=== PATIENT | female | born 1990 | race Caucasian/White ===

== ENCOUNTER 2018-06-06 06:40 | Day surgery (SDC) | payer BC ==
[~2018-06-06 06:40] MED LIST: Lactated Ringers 1,000 ML IV SCH; ceFAZolin 2 GM in Premix Bag 1 BAG IV ONE
[2018-06-06] MEDS ORDERED: Lidocaine 2% 5 ML SDV ONE (06:52)
[2018-06-06] MEDS ORDERED: Rocuronium 10 MG/ML 10 ML Syringe ONE (06:52)
[2018-06-06] MEDS ORDERED: Ondansetron 4 MG/2 ML SDV ONE (06:52)
[2018-06-06] MEDS ORDERED: Propofol 200 MG/20 ML SDV ONE (06:52)
[2018-06-06] MEDS ORDERED: fentaNYL 250 MCG/5 ML SDV ONE (06:52)
[2018-06-06] MEDS ORDERED: Midazolam 1 MG/ML 2 ML SDV ONE (06:52)
[2018-06-06] MEDS ORDERED: ceFAZolin/Dextrose,Iso-Osmotic 2 GM/50 ML Duplex Bag IV ONE (06:54)
[2018-06-06] MEDS ORDERED: Scopolamine 1.5 MG Transdermal Patch TRDERM PRN (07:03)
[2018-06-06] MEDS ORDERED: fentaNYL 100 MCG/2 ML SDV IVPUSH PRN (07:03)
[2018-06-06] MEDS ORDERED: Bupivacaine 25%/EPINEPHrine/PF 30 ML ONE (07:11)
[2018-06-06] MEDS ORDERED: Octyl 2-Cyanoacrylate 1 Tube ONE (07:11)
--- NOTE | 2018-06-06 07:18 | PCM.PREANE ---
Preanesthetic Assessment - Procedure Proposed Procedure: lap marielle - Anesthesia/Transfusion/Family Hx Anesthesia History: Prior Anesthesia Without Reaction Transfusion History: No Prior Transfusion(s) - Review of Systems Other: Reports: None - Physical Assessment NPO Status Date: 06/05/18 NPO Status Time: 21:00 O2 Sat by Pulse Oximetry: 98 Respiratory Rate: 16 Vital Signs: Last Vital Signs Temp 36.1 C 06/06/18 07:00 Pulse 92 06/06/18 07:00 Resp 16 06/06/18 07:00 BP 126/79 06/06/18 07:00 Pulse Ox 98 06/06/18 07:00 Height: 5 ft 6 in Weight: 112.037 kg ASA Class: 2 Mental Status: Alert & Oriented x3 Airway Class: Mallampati = 1 Dentition: Reports: Normal Dentition Thyro-Mental Finger Breadths: 3 Mouth Opening Finger Breadths: 3 ROM/Head Extension: Full - Allergies Allergies/Adverse Reactions: Allergies Allergy/AdvReac Type Severity Reaction Status Date / Time acetaminophen [From Vicodin] Allergy Itching Verified 06/03/18 09:12 hydrocodone [From Vicodin] Allergy Itching Verified 06/03/18 09:12 Sulfa (Sulfonamide Allergy Itching Verified 06/03/18 09:12 Antibiotics) - Blood Blood Available: No - Acknowledgements Anesthesia Type Planned: General Anesthesia Pt an Appropriate Candidate for the Planned Anesthesia: Yes Alternatives and Risks of Anesthesia Discussed w Pt/Guardian: Yes Pt/Guardian Understands and Agrees with Anesthesia Plan: Yes PreAnesthesia Questionnaire HEENT History: Reports: None Genitourinary History: Reports: None [employer]IL[employer]MA[employer] 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 Musculoskeletal History: Reports: Fracture Other Musculoskeletal History: hx fx leg Neurological History: Reports: Concussion Psychiatric History: Reports: Anxiety Endocrine/Metabolic History: Reports: Obesity/BMI 30+ Dermatologic History: Reports: Eczema - Past Surgical History Head Surgeries/Procedures: Reports: None HEENT Surgical History: Reports: Oral Surgery Female Surgical History: Reports: Other (See Below) Other Female Surgeries/Procedures: laparoscopy for ectopic - SUBSTANCE USE Smoking Status *Q: Never Smoker Recreational Drug Use History: No - HOME MEDS Home Medications: Home Meds Norgestimate-Ethinyl Estradiol [Leake-Linyah 28 Tablet] 1 tab PO DAILY 06/03/18 [ History] - CURRENT (IN HOUSE) MEDS Current Meds: Current Medications Fentanyl (Sublimaze) 50 mcg IVPUSH SEECOMMENT PRN PRN Reason: Pain (moderate 4-6) Lactated Ringer's (Ringers, Lactated) 1,000 mls @ 125 mls/hr IV ASDIRECTED VANESA Last Admin: 06/06/18 07:05 Dose: 125 mls/hr Scopolamine (Transderm-Scop) 1.5 mg TRDERM Q72H PRN PRN Reason: Nausea Discontinued Medications Cefazolin Sodium/Dextrose (Ancef) Confirm Administered Dose 2 gm IV .STK-MED ONE Stop: 06/06/18 06:55 Fentanyl (Sublimaze) Confirm Administered Dose 250 mcg .ROUTE .STK-MED ONE Stop: 06/06/18 06:53 Cefazolin Sodium/Dextrose 2 gm (/ Premix) 50 mls @ 100 mls/hr IV ONETIME ONE Stop: 06/06/18 05:29 Bupivacaine HCl/Epinephrine Bitart (Sensorc Mpf 0.25%-Epi 1:[id number]) Confirm Administered Dose 30 mls @ as directed .ROUTE .STK-MED ONE Stop: 06/06/18 07:12 Lidocaine (Xylocaine-Mpf 2%) Confirm Administered Dose 5 ml .ROUTE .STK-MED ONE Stop: 06/06/18 06:53 Midazolam HCl (Versed 1 Mg/Ml) Confirm Administered Dose 2 mg .ROUTE .STK-MED ONE Stop: 06/06/18 06:53 Octyl Cyanoacrylate (Dermabond Advance) Confirm Administered Dose 1 applic .ROUTE .STK-MED ONE Stop: 06/06/18 07:12 Ondansetron HCl (Zofran) Confirm Administered Dose 4 mg .ROUTE .STK-MED ONE Stop: 06/06/18 06:53 Propofol (Diprivan 20 Ml) Confirm Administered Dose 200 mg .ROUTE .STK-MED ONE Stop: 06/06/18 06:53 Rocuronium Eloy (Zemuron) Confirm Administered Dose 100 mg .ROUTE .STK-MED ONE Stop: 06/06/18 06:53
[2018-06-06] MEDS ORDERED: HYDROmorphone 2 MG/ML SDV ONE (09:01)
[2018-06-06] MEDS ORDERED: Glycopyrrolate 0.2 MG/ML SDV ONE (09:10)
[2018-06-06] MEDS ORDERED: Neostigmine Methylsulfate 1 MG/ML 5 ML Syringe ONE (09:10)
[2018-06-06] MEDS ORDERED: Acetaminophen/oxyCODONE 325-5 MG Tab PO PRN (10:08)
--- NOTE | 2018-06-06 10:23 | PCM.POSTAN ---
POST ANESTHESIA ASSESSMENT - MENTAL STATUS Mental Status: Alert, Oriented - RESPIRATORY Respiratory Status: Respiratory Rate WNL, Airway Patent, O2 Saturation Stable - CARDIOVASCULAR CV Status: Pulse Rate WNL, Blood Pressure Stable - GASTROINTESTINAL GI Status: No Symptoms - PAIN Pain Score: 4 - POST OP HYDRATION Hydration Status: Adequate & Stable
--- NOTE | 2018-06-06 10:47 | PCM.OPNOTE ---
- General Post-Op/Procedure Note Date of Surgery/Procedure: 06/06/18 Operative Procedure(s): lap marielle Findings: gb distended, yellow and green, wall not thickened, numerous large and small stones; [id number] Pre Op Diagnosis: acute and chronic cholecystitis Post-Op Diagnosis: Same Anesthesia Technique: General ET Tube Primary Surgeon: Jj Rousseau Pathology: sent Complications: None Condition: Good Free Text/Narrative:: Intake & Output 06/05/18 06/06/18 06/06/18 22:59 06:59 14:59 Intake Total 1800 Output Total 50 Balance 1750
[2018-06-06] MEDS ORDERED: Diazepam 2 MG Tab PO ONE (11:27)
--- NOTE | 2018-06-06 11:32 | OR ---
PROCEDURE PROPOSED: Laparoscopic cholecystectomy. PROCEDURE PERFORMED: Laparoscopic cholecystectomy. PROCEDURE NOTE: The patient was taken to the operating room and placed in the supine position. After the intubation of general endotracheal anesthesia, the patient's abdomen was prepped and draped in the usual sterile fashion. Using [email or web address], a 12 mm trocar was placed supraumbilically and then followed with pneumoperitoneum. A 5 mm trocar was placed in the epigastrium and two 5 mm trocars placed in the right upper quadrant. The placement of the last three trocars was done under direct video supervision. Upon gaining entrance to the abdominal cavity, an extensive examination was then performed. The gallbladder was located and identified and retracted to the dome of the liver at the triangle of Calot. The cystic duct was clipped three more times and then using the endoscopic clip, was transected with placement of the endoscopic clip and transection was performed with care, ensuring the posterior prong of the instruments were clearly visualized prior to exercising the procedure. The gallbladder was dissected using electrocautery out of the liver bed and then removed using endoscopic bag through the umbilical site. The gallbladder was removed en bloc and there was no bile spillage and this was then followed with extensive irrigation until the bile was clear from blood and bile. The trocars were then removed under direct video supervision. The 12 mm umbilical site was then closed with deep stitches using 0 Vicryl followed with proximal stitches using 3-0 Vicryl and Dermabond. The other three trocar sites were closed with 3-0 Vicryl followed with approximation of skin with Dermabond. The patient was then awakened and extubated and transferred to the recovery room in hemodynamically stable condition. At the conclusion of the surgery, before closing the abdominal wound, instrument count and sponge count were done and were correct. The patient tolerated the procedure well and there were no intraoperative complications. Dr. Rousseau was present through the whole procedure. Just before surgery, a timeout was called. The patient was identified and procedure identified and procedure started. SONIA
== END 2018-06-06 12:35 | disposition home or self-care (01) ==
LOC: MW.SDS 06:40
PROVIDERS: ATTEND Surgery
DX: K80.10 Calculus of gallbladder with chronic cholecystitis without obstruction (principal); E66.9 Obesity, unspecified; Z68.39 Body mass index [BMI] 39.0-39.9, adult; Z88.2 Allergy status to sulfonamides; Z88.5 Allergy status to narcotic agent; Z88.6 Allergy status to analgesic agent
CPT/HCPCS: 47562; 81025; A9270; J0131; J0690; J1170; J2250; J2405; J2704; J3010; J3490; J7120; 00790; 88304

== ENCOUNTER 2019-08-27 03:39 | Inpatient (IN) | payer BC ==
[2019-08-27] MEDS ORDERED: Nalbuphine 10 MG/1 ML Vial IVPUSH PRN (06:08)
[2019-08-27] MEDS ORDERED: Lidocaine 1% 50 ML MDV INJECT PRN (06:08)
[2019-08-27] MEDS ORDERED: Sodium Chloride 0.9% 10 ML Syringe FLUSH PRN (06:08)
[2019-08-27] MEDS ORDERED: Sodium Chloride 0.9% 10 ML SDV IV PRN (06:08)
[2019-08-27] MEDS ORDERED: Tranexamic Acid 1,000 MG in Sodium Chloride 0.9% 100 ML IV PRN (06:08)
[2019-08-27] MEDS ORDERED: Water For Irrigation,Sterile 1,000 ML Container IRR PRN (06:08)
[2019-08-27] MEDS ORDERED: Methylergonovine 0.2 MG/1 ML Amp IM PRN (06:08)
[2019-08-27] MEDS ORDERED: Sodium Chloride 0.9% 2.5 ML Syringe FLUSH PRN (06:08)
[2019-08-27] MEDS ORDERED: Butorphanol 1 MG/ML SDV IVPUSH PRN (06:08)
[2019-08-27] MEDS ORDERED: Misoprostol 200 MCG Tab PO PRN (06:08)
[2019-08-27] MEDS ORDERED: Carboprost Tromethamine 250 MCG/1 ML Amp IM PRN (06:08)
[2019-08-27] MEDS ORDERED: Lactated Ringers 1,000 ML IV SCH (06:15)
[2019-08-27] MEDS ORDERED: Oxytocin/0.9 % Sodium Chloride 30 UNIT/500 ML BAG IV SCH (06:15)
[2019-08-27] MEDS ORDERED: Ondansetron 4 MG/2 ML SDV IVPUSH PRN (11:36)
[2019-08-27] MEDS ORDERED: Benzocaine/Menthol 20%-0.5% Spray 78 GM Cannister TOP PRN (11:36)
[2019-08-27] MEDS ORDERED: Witch Hazel Medicated Pads 40/Jar TOP PRN (11:36)
[2019-08-27] MEDS ORDERED: Lanolin 100% Cream 7 GM Tube TOP PRN (11:36)
[2019-08-27] MEDS ORDERED: Bisacodyl 10 MG Supp RECTAL PRN (11:36)
[2019-08-27] MEDS ORDERED: Ibuprofen 400 MG Tab PO PRN (11:36)
[2019-08-27] MEDS ORDERED: oxyCODONE 5 MG Tab PO PRN (11:36)
--- NOTE | 2019-08-27 11:43 | PCM.OPNOTE ---
- General Post-Op/Procedure Note Date of Surgery/Procedure: 08/27/19 Operative Procedure(s): /IP Findings: Viable female APGARs 8, 9 weight pending. Spontaneous delivery intact placenta with 3V cord Pre Op Diagnosis: 37/6 week IUP. Active labor Post-Op Diagnosis: Same Primary Surgeon: Santa Waters EBL in mLs: 200 Complications: none known Condition: Stable Free Text/Narrative:: Dictation [id number]
[2019-08-27] MEDS: Ibuprofen 800 MG Tab PO PRN ×2 (11:57→21:42)
--- NOTE | 2019-08-27 12:09 | OR ---
SURGEON: Santa Waters M.D. DATE OF PROCEDURE: 08/27/2019 PREOPERATIVE DIAGNOSES: 1. A 37-6/7 weeks' intrauterine . 2. Active labor. POSTOPERATIVE DIAGNOSES: 1. A 37-6/7 weeks' intrauterine . 2. Active labor. PROCEDURE: Spontaneous vaginal delivery, intact perineum. PRIMARY SURGEON: Santa Waters MD. ANESTHESIA: None. ESTIMATED BLOOD LOSS: 200 mL. COMPLICATIONS: None known. FINDINGS: Viable female. scores 8 at one minute and 9 at five minutes. Weight is pending. Spontaneous delivery, intact placenta, 3-vessel cord. DISPOSITION: Infant to nursery, mom in LDRP. PROCEDURE DETAILS: Soo is a 29-year-old G6, P 2-0-3-2, at 37-6/7 weeks' gestational age who presents on the morning of 08/27/2019 with regular contractions. She did make cervical change from 2 cm to 3 cm dilatation, therefore was admitted. Routine labs drawn, IV hydration was initiated. The patient underwent amniotomy shortly after 8 a.m. Clear fluid was found to be present. At that time, she was found to be 3 cm, 80% effaced, minus 2 station. Shortly before 11 am she was found to be 6 cm and rapidly progressed to 8 cm with pushing effort and very quickly progressed to complete. I had been called for delivery. Upon my arrival, the had just delivered with attending nurse present. Infant was handed off to her mother. After a delay, cord was clamped x2 and cut. Cord arterial, cord venous, cord blood sampling was obtained. Light pressure was applied while the placenta was delivered spontaneously intact. Vigorous fundal uterine massage was then applied while 30 units of Pitocin was delivered in 500 mL of IV fluid. Upon inspection of cervix, vaginal sidewalls, and perineum, these were found to be intact. Uterus remained firm, hemostasis present. The sponge and instrument count was correct. The patient has tolerated the procedure well. She will remain in LDRP, to nursery. PILO / KENZIE /[id number] SONIA
[2019-08-27] MEDS ORDERED: Acetaminophen 500 MG Tab PO PRN (17:30)
[2019-08-27] MEDS: Acetaminophen 500 MG Tab PO PRN (17:46)
[2019-08-27] MEDS: Docusate Sodium 100 MG Cap PO PRN (21:47)
[2019-08-28] MEDS: Acetaminophen 500 MG Tab PO PRN
[2019-08-28] MEDS: Ibuprofen 800 MG Tab PO PRN (04:50)
[2019-08-28] MEDS: Docusate Sodium 100 MG Cap PO PRN (09:01)
--- NOTE | 2019-08-28 09:39 | PCM.PNPP ---
- General Info Date of Service: 08/28/19 Functional Status: Reports: Pain Controlled, Tolerating Diet, Ambulating, Urinating - Review of Systems General: Denies: Fever, Weakness, Fatigue Pulmonary: Denies: Shortness of Breath Cardiovascular: Denies: Chest Pain, Palpitations, Lightheadedness Gastrointestinal: Denies: Abdominal Pain, Nausea, Vomiting Genitourinary: Denies: Flank Pain Musculoskeletal: Reports: No Symptoms Skin: Reports: No Symptoms Neurological: Reports: No Symptoms Psychiatric: Reports: No Symptoms - General Info Date of Service: 08/28/19 - Patient Data Vital Signs - Most Recent: Last Vital Signs Temp 36.4 C 08/28/19 08:00 Pulse 71 08/28/19 08:00 Resp 18 08/28/19 08:00 BP 132/82 08/28/19 08:00 Pulse Ox 98 08/28/19 08:00 Weight - Most Recent: 113.398 kg Lab Results - Last 24 Hours: Laboratory Results - last 24 hr 08/27/19 08/28/19 Range/Units 11:21 05:51 Hgb 11.8 L (12.0-16.0) g/dL Hct 35.6 L (36.0-46.0) % Cord ABG pH 7.167 L (7.18-7.38) Cord ABG Base Excess -8 (-10--2) Cord VBG pH 7.283 (7.25-7.45) Cord VBG Base Excess -6 (-10--2) Med Orders - Current: Current Medications Acetaminophen (Tylenol Extra Strength) 500 mg PO Q6H PRN PRN Reason: Pain Acetaminophen (Tylenol Extra Strength) 1,000 mg PO Q6H PRN PRN Reason: Pain Last Admin: 08/28/19 00:00 Dose: 1,000 mg Benzocaine/Menthol (Dermoplast Pain Relief 20%-0.5% [place]) 78 gm TOP ASDIRECTED PRN PRN Reason: Perineal Comfort Measure Bisacodyl (Dulcolax) 10 mg RECTAL ONETIME PRN PRN Reason: Constipation Butorphanol Tartrate (Stadol) 1 mg IVPUSH Q1H PRN PRN Reason: Pain Last Admin: 08/27/19 09:54 Dose: 1 mg Carboprost Tromethamine (Hemabate Ds) 250 mcg IM ASDIRECTED PRN PRN Reason: Post Hemorrhage Docusate Sodium (Colace) 100 mg PO BID PRN PRN Reason: Constipation Last Admin: 08/28/19 09:01 Dose: 100 mg Emollient Ointment (Lansinoh Hpa) 0 gm TOP ASDIRECTED PRN PRN Reason: Sore Nipples Tranexamic Acid 1,000 mg/ (Sodium Chloride) 110 mls @ 660 mls/hr IV ONETIME PRN PRN Reason: Bleeding Lactated Ringer's (Ringers, Lactated) 1,000 mls @ 150 mls/hr IV ASDIRECTED [facility] Last Admin: 08/27/19 09:53 Dose: 150 mls/hr Oxytocin/Sodium Chloride (Oxytocin 30 Unit/500 Ml-Ns) 30 unit in 500 mls @ 999 mls/hr IV TITRATE [facility] Last Admin: 08/27/19 11:25 Dose: 500 mls/hr Ibuprofen (Motrin) 400 mg PO Q4H PRN PRN Reason: Pain Ibuprofen (Motrin) 800 mg PO Q6H PRN PRN Reason: Pain Last Admin: 08/28/19 04:50 Dose: 800 mg Lidocaine HCl (Xylocaine 1%) 50 ml INJECT ONETIME PRN PRN Reason: Laceration repair Methylergonovine Maleate (Methergine) 0.2 mg IM ASDIRECTED PRN PRN Reason: Post Hemorrhage Misoprostol (Cytotec) 200 mcg PO ONETIME PRN PRN Reason: Post Hemorrhage Nalbuphine HCl (Nubain) 10 mg IVPUSH Q1H PRN PRN Reason: Pain (severe 7-10) Ondansetron HCl (Zofran) 4 mg IVPUSH Q6H PRN PRN Reason: Nausea/Vomiting Oxycodone HCl (Oxycodone) 5 mg PO Q2H PRN PRN Reason: Pain Sodium Chloride (Saline Flush) 10 ml FLUSH ASDIRECTED PRN PRN Reason: Keep Vein Open Sodium Chloride (Saline Flush) 2.5 ml FLUSH ASDIRECTED PRN PRN Reason: Keep Vein Open Sodium Chloride (Normal Saline) 10 ml IV ASDIRECTED PRN PRN Reason: IV Use Sterile Water (Sterile Water For Irrigation) 1,000 ml IRR ASDIRECTED PRN PRN Reason: delivery Witch Stefany (Tucks) 1 pad TOP ASDIRECTED PRN PRN Reason: comfort care - Infant Interaction Support Person: - Recovery Exam Fundal Tone: Firm Fundal Level: 1 Fingerbreadths Below Umbilicus Fundal Placement: Midline Lochia Amount: Scant Lochia Color: Rubra/Red Perineum Description: Intact, Minimal Bruising/Swelling Episiotomy/Laceration: None Bladder Status: Voiding - Exam General: Alert, Oriented Neck: Supple Lungs: Normal Respiratory Effort Cardiovascular: Regular Rate, Regular Rhythm GI/Abdominal Exam: Normal Bowel Sounds, Soft Extremities: Pedal Edema (trace). No: Tammy's Sign Skin: Warm, Dry, Intact Neurological: No New Focal Deficit Psy/Mental Status: Alert, Normal Affect, Normal Mood - Problem List & Annotations (1) Vaginal delivery SNOMED Code(s): 652610135 Code(s): O80 - ENCOUNTER FOR FULL-TERM UNCOMPLICATED DELIVERY Status: Acute Current Visit: Yes - Problem List Review Problem List Initiated/Reviewed/Updated: Yes - My Orders Last 24 Hours: My Active Orders 08/27/19 11:36 Patient Status [ADT] Routine May Shower [RC] ASDIRECTED Notify Provider Vital Signs [RC] ASDIRECTED Up ad Raegan [RC] ASDIRECTED Vital Signs [RC] PER UNIT ROUTINE Benzocaine/Menthol [Dermoplast Pain Relief 20%-0.5% [place]] 78 gm TOP ASDIRECTED PRN Docusate Sodium [Colace] 100 mg PO BID PRN Ibuprofen [Motrin] 400 mg PO Q4H PRN Ibuprofen [Motrin] 800 mg PO Q6H PRN Lanolin [Lansinoh HPA] See Dose Instructions TOP ASDIRECTED PRN Ondansetron [Zofran] 4 mg IVPUSH Q6H PRN Witch Stefany [Tucks] 1 pad TOP ASDIRECTED PRN bisacodyL [Dulcolax] 10 mg RECTAL ONETIME PRN oxyCODONE 5 mg PO Q2H PRN Assess Lochia [WOMSER] Per Unit Routine Assess Uterine Involution [WOMSER] Per Unit Routine Ice Therapy [OM.PC] Per Unit Routine Perineal Care [OM.PC] Per Unit Routine Peripheral IV Discontinue [OM.PC] Routine Sitz Bath [OM.PC] Per Unit Routine 08/27/19 17:30 Acetaminophen [Tylenol Extra Strength] 1,000 mg PO Q6H PRN Acetaminophen [Tylenol Extra Strength] 500 mg PO Q6H PRN 08/27/19 Lunch Regular Diet [DIET] 08/28/19 09:37 Ready for Discharge [RC] PER UNIT ROUTINE - Assessment Assessment:: PPD 1 status post - Plan Plan:: Doing well overall. VS and labs reassuring. Discharge to home today. DIscharge instructions reviewed.
== END 2019-08-28 14:15 | disposition home or self-care (01) | DRG 560 ==
LOC: MW.OBCHECK 03:39 → MW.OB 03:41 → MW.OBCHECK 06:03 → MW.OB 06:03 → OBSVTOIN 11:36 → MW.OB 15:15
PROVIDERS: ADMIT Obstetrics & Gynecology; ATTEND Obstetrics & Gynecology
PROC: 10E0XZZ Delivery of Products of Conception, External Approach (ICD-10-PCS; principal; 2019-08-27)
PROC: 10907ZC Drainage of Amniotic Fluid, Therapeutic from Products of Conception, Via Natural or Artificial Opening (ICD-10-PCS; 2019-08-27)
DX: O80 Encounter for full-term uncomplicated delivery (principal); Z3A.37 37 weeks gestation of pregnancy; Z37.0 Single live birth
CPT/HCPCS: 36415; 59025; 59409; 82803; 85014; 85018; 85027; 86593; 86850; 86900; 86901; A9270-GY; J0595; J2590; J7120